=== PATIENT | female | born 1960 | race Caucasian/White ===

== ENCOUNTER → 2025-06-20 11:38 | Outpatient (REF) | payer BC, SELFPAY ==
[2025-06-20 12:07] LABS: Hematocrit 42.2 % (37.0-47.0); Hemoglobin 14.3 g/dL (12.0-16.0); Mean Corp Hgb Conc. 33.9 g/dL (33.0-37.0); Mean Corpuscular Volume 101.2 fL (81.0-99.0); Nucleated Red Blood Cells % 0 %; Platelet Count 247 10^3/uL (130-400); Red Cell Dist. Width 13.6 % (11.5-14.5)
[2025-06-20 12:10] VITALS: BP 120/74; BP_SYST 110
[2025-06-20 12:14] LABS: INR 1.37; PT 17.1 Sec (11.4-14.6)
[2025-06-20] MEDS: ATIVAN 0.5 MG PO (12:30)
[2025-06-20 13:35] VITALS: BP 85/54; BP_SYST 105
[2025-06-20 13:40] VITALS: BP 87/72; BP_SYST 100
[2025-06-20 13:45] VITALS: BP 87/77; BP_SYST 98
[2025-06-20 13:50] VITALS: BP 101/89; BP_SYST 99
[2025-06-20 14:10] VITALS: BP 101/89
--- NOTE | 2025-06-20 14:23 | PTCARENOTE ---
[facility] note: patient tolerated procedure well. denied any pain or complaints right after procedure. procedure site CDI. at the time of discharge, pt c/o feeling numbness to right leg. patient was assisted to sit back in the stretcher. Dr. Ervin
notified. per Dr. Ervin, this could be from lidocaine injection or the way patient was lying on the procedure table. per this should get better in 3-4 hrs and patient to ok to discharge. RN offered pt to be monitored little longer but
patient refused, stated ' i am going home'. instructed pt to call [facility] if numbness doesn't go away in 3-4 hrs. verbalized understanding. wheeled patient to [facility] with Friend Megan.
== END ==
LOC: RADI 11:38
PROVIDERS: ATTENDING PHYSICIAN Internal Medicine Hematology & Oncology; FAMILY PHYSICIAN Family Medicine Hospice and Palliative Medicine; OTHER PHYSICIAN Physician Assistant
DX: D72.829 Elevated white blood cell count, unspecified (principal); D68.8 Other specified coagulation defects
CPT/HCPCS: 36415; 38222; 77012; 85025; 85610; 88305; 88311; 88312; 88313